=== PATIENT | female | born 1980 | race Caucasian/White ===

== ENCOUNTER 2020-12-10 08:10 | Emergency (ER) | payer BC ==
[2020-12-10 08:21] VITALS: BP 115/81; PULSE 91; TEMP 99.1; BMI 35.7
[2020-12-10] MEDS ORDERED: ACETAMINOPHEN 500 MG TABLET (FP) PO ONE (09:03)
[2020-12-10] MEDS ORDERED: guaiFENesin/CODEINE 10 ML UNIT-DOSE CUPS PO ONE (09:03)
[2020-12-10] MEDS ORDERED: guaiFENesin/CODEINE 5 ML UNIT-DOSE CUPS PO ONE (09:04)
[2020-12-10] MEDS ORDERED: ACETAMINOPHEN 500 MG TABLET (FP) ONE (09:04)
== END 2020-12-10 09:22 | disposition home or self-care (01) ==
LOC: JER 08:10
DX: Z11.52 Encounter for screening for COVID-19 (principal)
CPT/HCPCS: 71046-TC-FY; 87804; 99284-25; C9803; U0003; U0005